=== PATIENT | male | born 1950 | race Caucasian/White ===

== ENCOUNTER 2018-02-26 07:13 | Inpatient (IN) | payer OTHER ==
[2018-02-26] MEDS: LACTATED RINGER'S 1,000 ML IV (08:16)
[2018-02-26] MEDS: morphine 4 MG/ML VIAL IV ×2 (08:16→14:01)
[2018-02-26] MEDS: SPECIAL NON-STANDARD MEDICATION IV (08:16)
[2018-02-26] MEDS: ONDANSETRON 4 MG INJ IV ×2 (08:17→14:01)
[2018-02-26 08:21] LABS: ADD MAN DIFF? NO
[2018-02-26 08:24] LABS: BASOPHILS % 0.3 % (0.0-2.0); HEMATOCRIT 46.3 % (42.0-52.0); HEMOGLOBIN 15.8 g/dl (14.0-18.0); LYMPHOCYTES % 9.2 % (15.0-51.0); MEAN CORPUSCULAR HEMOGLOBIN 31.7 pg (29.0-33.0); MEAN CORPUSCULAR HGB CONC 34.1 g/dl (32.0-37.0); MEAN PLATELET VOLUME 10.4 fl (7.4-10.4); MONOCYTE # 0.6 10^3/ul (0.3-0.9); MONOCYTES % 5.3 % (0.0-11.0); NEUTROPHIL # 9.4 10^3/ul (1.6-7.5); NEUTROPHILS % 84.9 % (39.0-77.0); PLATELET COUNT 229 10^3/UL (140-415); RED BLOOD COUNT 4.98 10^6/ul (4.70-6.10); RED CELL DISTRIBUTION WIDTH 12.5 % (11.5-14.5)
[2018-02-26 08:30] LABS: ADD UMIC YES; UR ASCORBIC ACID NEGATIVE (NEGATIVE); UR BILIRUBIN (Dip) NEGATIVE (NEGATIVE); UR BLOOD (Dip) 1+ mg/dL (NEGATIVE); UR CLARITY CLEAR (CLEAR); UR COLOR YELLOW (YELLOW); UR GLUCOSE (Dip) NEGATIVE (NEGATIVE); UR KETONES (Dip) 2+ mg/dL (NEGATIVE); UR LEUKOCYTE ESTERASE (Dip) NEGATIVE Leu/ul (NEGATIVE); UR MUCUS FEW /HPF (NONE SEEN); UR NITRITE (Dip) NEGATIVE (NEGATIVE); UR RBC 4 /HPF (0-5); UR SPECIFIC GRAVITY (Dip) 1.028 (1.003-1.030); UR TOTAL PROTEIN (Dip) NEGATIVE (NEGATIVE); UR UROBILINOGEN (Dip) NEGATIVE (NEGATIVE); UR WBC 0 /HPF (0-5)
[2018-02-26 08:49] LABS: ALANINE AMINOTRANSFERASE 46 IU/L (13-69); ALBUMIN 4.3 g/dl (3.3-4.9); ALBUMIN/GLOBULIN RATIO 1.38; ALKALINE PHOSPHATASE 81 IU/L (42-121); ANION GAP 18 (8-16); ASPARTATE AMINO TRANSFERASE 45 IU/L (15-46); BILIRUBIN,INDIRECT 2.3 mg/dl (0-1.1); BILIRUBIN,TOTAL 2.3 mg/dl (0.2-1.3); BLOOD UREA NITROGEN 24 mg/dl (7-20); CALCIUM 8.9 mg/dl (8.4-10.2); CARBON DIOXIDE 27 mmol/L (21-31); CHLORIDE 105 mmol/L (97-110); CREATININE 1.03 mg/dl (0.61-1.24); GLUCOSE 133 mg/dl (70-220); LIPASE 79 U/L (23-300); POTASSIUM 4.7 mmol/L (3.5-5.1); SODIUM 145 mmol/L (135-144); TOTAL PROTEIN 7.4 g/dl (6.1-8.1)
[2018-02-26 09:00] LABS: TROPONIN-I < 0.012 ng/ml (0.000-0.120)
[2018-02-26] MEDS: AMPICILLIN/SULB 3 GM/NS (PMX) 100 ML IVPB (10:26)
[2018-02-26] MEDS ORDERED: ACETAMINOPHEN 325 MG TAB PO ×2 (10:30→14:00)
[2018-02-26] MEDS ORDERED: LORAZEPAM 2 MG INJ IV (14:00)
[2018-02-26] MEDS ORDERED: MAGNESIUM HYDROXIDE 30ML CUP PO (14:00)
[2018-02-26] MEDS ORDERED: NACL 0.9% 3 ML SYG IV (14:00)
[2018-02-26] MEDS ORDERED: ONDANSETRON 4 MG INJ IV (14:00)
[2018-02-26] MEDS ORDERED: BISACODYL (EC) 5 MG TAB PO (14:00)
[2018-02-26] MEDS ORDERED: DOCUSATE SODIUM 100 MG CAP PO (14:00)
[2018-02-26] MEDS ORDERED: morphine 2 MG INJ IV (14:00)
[2018-02-26] MEDS: FAMOTIDINE 20 MG INJ IV (15:23)
[2018-02-26] MEDS: PANTOPRAZOLE 40 MG INJ IV (15:24)
[2018-02-26] MEDS: DEXTROSE 5%-0.45% NACL 1,000 ML IV (15:25)
[2018-02-26] MEDS: PIPER-TAZO 3.375 GM IV (PMX) 100 ML IVPB ×2 (18:11→23:45)
[2018-02-26] MEDS: HYDROmorphONE 0.5 MG/0.5 ML SYG IV ×2 (18:24→23:52)
[2018-02-27] MEDS: PIPER-TAZO 3.375 GM IV (PMX) 100 ML IVPB ×3 (05:33→18:11)
[2018-02-27] MEDS: PANTOPRAZOLE 40 MG INJ IV (05:33)
[2018-02-27] MEDS: DEXTROSE 5%-0.45% NACL 1,000 ML IV ×3 (05:34→21:36)
[2018-02-27 06:15] LABS: ADD MAN DIFF? NO
[2018-02-27 06:18] LABS: BASOPHILS % 0.3 % (0.0-2.0); EOSINOPHILS % 0.1 % (0.0-7.0); HEMATOCRIT 43.1 % (42.0-52.0); HEMOGLOBIN 14.6 g/dl (14.0-18.0); LYMPHOCYTES # 1.6 10^3/ul (0.8-2.9); LYMPHOCYTES % 14.4 % (15.0-51.0); MEAN CORPUSCULAR HEMOGLOBIN 31.8 pg (29.0-33.0); MEAN CORPUSCULAR HGB CONC 33.9 g/dl (32.0-37.0); MEAN CORPUSCULAR VOLUME 93.9 fl (82.0-101.0); MEAN PLATELET VOLUME 10.6 fl (7.4-10.4); MONOCYTE # 1.3 10^3/ul (0.3-0.9); MONOCYTES % 11.4 % (0.0-11.0); NEUTROPHIL # 8.2 10^3/ul (1.6-7.5); NEUTROPHILS % 73.4 % (39.0-77.0); PLATELET COUNT 198 10^3/UL (140-415); RED BLOOD COUNT 4.59 10^6/ul (4.70-6.10); RED CELL DISTRIBUTION WIDTH 12.9 % (11.5-14.5)
[2018-02-27 06:18] LABS: WHITE BLOOD COUNT 11.1 10^3/ul (4.8-10.8)
[2018-02-27 06:37] LABS: PROTIME 13.3 Sec (11.9-14.9)
[2018-02-27 06:53] LABS: ALANINE AMINOTRANSFERASE 38 IU/L (13-69); ALBUMIN 3.2 g/dl (3.3-4.9); ALBUMIN/GLOBULIN RATIO 1.14; ALKALINE PHOSPHATASE 60 IU/L (42-121); ANION GAP 11 (8-16); ASPARTATE AMINO TRANSFERASE 28 IU/L (15-46); BILIRUBIN,INDIRECT 3.5 mg/dl (0-1.1); BILIRUBIN,TOTAL 3.5 mg/dl (0.2-1.3); BLOOD UREA NITROGEN 17 mg/dl (7-20); CALCIUM 8.4 mg/dl (8.4-10.2); CARBON DIOXIDE 28 mmol/L (21-31); CHLORIDE 107 mmol/L (97-110); CHOL/HDL RATIO 2.3 RATIO; CHOLESTEROL 109 mg/dl (100-200); CREATININE 1.16 mg/dl (0.61-1.24); GLUCOSE 113 mg/dl (70-220); HDL CHOLESTEROL 46 mg/dl (30-78); LDL CHOLESTEROL,CALCULATED 50 mg/dl; POTASSIUM 4.2 mmol/L (3.5-5.1); SODIUM 142 mmol/L (135-144); TRIGLYCERIDES 64 mg/dl (0-149)
[2018-02-27] MEDS: HYDROmorphONE 0.5 MG/0.5 ML SYG IV ×2 (08:03→22:18)
[2018-02-28] MEDS: PIPER-TAZO 3.375 GM IV (PMX) 100 ML IVPB ×5 (00:10→23:13)
[2018-02-28] MEDS: PANTOPRAZOLE 40 MG INJ IV (05:35)
[2018-02-28] MEDS: HYDROmorphONE 0.5 MG/0.5 ML SYG IV (05:35)
[2018-02-28] MEDS: DEXTROSE 5%-0.45% NACL 1,000 ML IV ×3 (05:45→15:45)
[2018-02-28] MEDS ORDERED: BUPIVACAINE 0.25%/EPI (MDV) 50 ML VIAL INJ (07:00)
[2018-02-28 11:18] LABS: ADD MAN DIFF? NO
[2018-02-28 11:20] LABS: WHITE BLOOD COUNT 8.7 10^3/ul (4.8-10.8)
[2018-02-28 11:20] LABS: BASOPHILS % 0.3 % (0.0-2.0); EOSINOPHILS # 0.1 10^3/ul (0.0-0.5); HEMATOCRIT 41.4 % (42.0-52.0); HEMOGLOBIN 13.9 g/dl (14.0-18.0); LYMPHOCYTES # 2.1 10^3/ul (0.8-2.9); LYMPHOCYTES % 24.3 % (15.0-51.0); MEAN CORPUSCULAR HEMOGLOBIN 31.7 pg (29.0-33.0); MEAN CORPUSCULAR HGB CONC 33.6 g/dl (32.0-37.0); MEAN CORPUSCULAR VOLUME 94.3 fl (82.0-101.0); MEAN PLATELET VOLUME 10.3 fl (7.4-10.4); MONOCYTES % 11.2 % (0.0-11.0); NEUTROPHIL # 5.5 10^3/ul (1.6-7.5); NEUTROPHILS % 62.9 % (39.0-77.0); PLATELET COUNT 170 10^3/UL (140-415); RED BLOOD COUNT 4.39 10^6/ul (4.70-6.10); RED CELL DISTRIBUTION WIDTH 12.5 % (11.5-14.5)
[2018-02-28 11:44] LABS: ALANINE AMINOTRANSFERASE 36 IU/L (13-69); ALBUMIN 3.2 g/dl (3.3-4.9); ALBUMIN/GLOBULIN RATIO 1.14; ALKALINE PHOSPHATASE 56 IU/L (42-121); ANION GAP 10 (8-16); ASPARTATE AMINO TRANSFERASE 34 IU/L (15-46); BILIRUBIN,INDIRECT 3.3 mg/dl (0-1.1); BILIRUBIN,TOTAL 3.3 mg/dl (0.2-1.3); BLOOD UREA NITROGEN 11 mg/dl (7-20); CARBON DIOXIDE 29 mmol/L (21-31); CHLORIDE 107 mmol/L (97-110); CREATININE 0.93 mg/dl (0.61-1.24); GLUCOSE 108 mg/dl (70-220); POTASSIUM 3.9 mmol/L (3.5-5.1); SODIUM 142 mmol/L (135-144)
[2018-02-28 16:42] LABS: HAPTOGLOBIN 156 mg/dL (43-212)
[2018-02-28] MEDS ORDERED: PROPOFOL 20 ML (18:23)
[2018-02-28] MEDS ORDERED: ROCURONIUM 50 MG INJ (18:23)
[2018-02-28] MEDS ORDERED: MIDAZOLAM 1 MG/ML 2 ML INJ (18:24)
[2018-02-28] MEDS ORDERED: ROPIVACAINE 0.5 % 30 ML VIAL (18:24)
[2018-02-28] MEDS ORDERED: PHENYLephrine (100 MCG/ML) 5ML SYG (19:43)
[2018-02-28] MEDS ORDERED: KETOROLAC 30 MG INJ (20:07)
[2018-02-28] MEDS ORDERED: ACETAMINOPHEN 1000MG/100ML IV 100 ML (20:07)
[2018-02-28] MEDS ORDERED: DEXAMETHASONE 4 MG/ML 1 ML INJ (20:07)
[2018-02-28] MEDS ORDERED: ONDANSETRON 4 MG INJ (20:07)
[2018-02-28] MEDS ORDERED: METOCLOPRAMIDE 10 MG INJ (20:07)
[2018-02-28] MEDS ORDERED: SUGAMMADEX SODIUM 200 MG/2 ML VIAL IV (20:07)
[2018-02-28] MEDS ORDERED: FENTAnyl 50 MCG/ML VIAL IV ×3 (20:30)
[2018-02-28] MEDS ORDERED: OXYCODONE/ACETAMINOPHEN (5/325) TAB PO ×2 (20:30)
[2018-02-28] MEDS ORDERED: EPHEDrine SULFATE 50 MG/5 ML SYG IV (20:30)
[2018-02-28] MEDS ORDERED: LABETALOL HCL 20MG INJ IV (20:30)
[2018-02-28] MEDS ORDERED: METOCLOPRAMIDE 10 MG INJ IV (20:30)
[2018-02-28] MEDS ORDERED: MEPERIDINE 25 MG INJ IV (20:30)
[2018-02-28] MEDS ORDERED: ONDANSETRON 4 MG INJ IV ×2 (20:30→21:30)
[2018-02-28] MEDS ORDERED: hydrALAzine 20 MG INJ IV (20:30)
[2018-02-28] MEDS ORDERED: HYDROmorphONE (0.2 MG/ML) 10ML SYG IV ×3 (20:30)
[2018-02-28] MEDS ORDERED: DIPHENHYDRAMINE 50 MG INJ IV (20:30)
[2018-02-28] MEDS ORDERED: MEPERIDINE 100 MG INJ (21:03)
[2018-02-28] MEDS ORDERED: HYDROCODONE/APAP (5/325) TAB PO (21:30)
[2018-02-28] MEDS ORDERED: HYDROmorphONE 0.5 MG/0.5 ML SYG IV (21:30)
[2018-02-28] MEDS ORDERED: ACETAMINOPHEN 325 MG TAB PO (21:30)
[2018-02-28] MEDS ORDERED: NALOXONE (0.4 MG/ML) INJ (22:23)
[2018-02-28] MEDS: D5-NS + KCL 20 MEQ 1,000 ML IV (23:06)
[2018-02-28] MEDS: HYDROCODONE/APAP (5/325) TAB PO (23:14)
[2018-03-01] MEDS ORDERED: PIPER-TAZO 3.375 GM IV (PMX) 100 ML IVPB
[2018-03-01] MEDS: DEXTROSE 5%-0.45% NACL 1,000 ML IV ×2 (01:45→11:45)
[2018-03-01 06:04] LABS: ADD MAN DIFF? NO
[2018-03-01 06:21] LABS: BASOPHILS % 0.1 % (0.0-2.0); HEMATOCRIT 40.2 % (42.0-52.0); HEMOGLOBIN 13.6 g/dl (14.0-18.0); LYMPHOCYTES # 0.8 10^3/ul (0.8-2.9); LYMPHOCYTES % 11.9 % (15.0-51.0); MEAN CORPUSCULAR HEMOGLOBIN 31.8 pg (29.0-33.0); MEAN CORPUSCULAR HGB CONC 33.8 g/dl (32.0-37.0); MEAN CORPUSCULAR VOLUME 93.9 fl (82.0-101.0); MEAN PLATELET VOLUME 11.1 fl (7.4-10.4); MONOCYTE # 0.2 10^3/ul (0.3-0.9); MONOCYTES % 3.2 % (0.0-11.0); NEUTROPHIL # 5.7 10^3/ul (1.6-7.5); NEUTROPHILS % 84.4 % (39.0-77.0); PLATELET COUNT 191 10^3/UL (140-415); RED BLOOD COUNT 4.28 10^6/ul (4.70-6.10); RED CELL DISTRIBUTION WIDTH 12.6 % (11.5-14.5)
[2018-03-01 06:21] LABS: WHITE BLOOD COUNT 6.8 10^3/ul (4.8-10.8)
[2018-03-01] MEDS: PIPER-TAZO 3.375 GM IV (PMX) 100 ML IVPB ×2 (06:22→12:00)
[2018-03-01] MEDS: PANTOPRAZOLE 40 MG INJ IV (06:24)
[2018-03-01] MEDS: ENOXAPARIN 40 MG/0.4 ML SYG SC (06:24)
[2018-03-01] MEDS: HYDROCODONE/APAP (5/325) TAB PO (06:24)
[2018-03-01] MEDS: D5-NS + KCL 20 MEQ 1,000 ML IV (07:20)
== END 2018-03-01 13:00 | disposition home or self-care (01) | DRG 418 ==
LOC: E/R 07:13 → MS2 10:01
PROC: 0FT44ZZ Resection of Gallbladder, Percutaneous Endoscopic Approach (ICD-10-PCS; principal; 2018-02-28 19:00)
DX: K80.00 Calculus of gallbladder with acute cholecystitis without obstruction (principal); E87.0 Hyperosmolality and hypernatremia; F32.9 Major depressive disorder, single episode, unspecified; E86.0 Dehydration; R82.4 Acetonuria; E80.6 Other disorders of bilirubin metabolism; E78.5 Hyperlipidemia, unspecified; E80.4 Gilbert syndrome
CPT/HCPCS: 36415; 74181; 76705; 80053; 80061; 81001; 83010; 83690; 83735; 84484; 85025; 85610; 88304; 93005; 96374; 96375; 96376; 99285-25

== ENCOUNTER 2018-03-06 14:59 | Outpatient (CLI) | payer OTHER | END 2018-03-06 16:09 | disposition home or self-care (01) | LOC: DCC 14:59 | DX: R10.9 Unspecified abdominal pain (principal); F32.9 Major depressive disorder, single episode, unspecified; E78.5 Hyperlipidemia, unspecified | CPT/HCPCS: G0463 ==

== ENCOUNTER 2018-03-14 15:36 | Emergency (ER) | payer OTHER ==
[2018-03-14] MEDS: FAMOTIDINE 20 MG TAB PO (16:38)
[2018-03-14] MEDS: ACETAMINOPHEN 325 MG TAB PO (16:38)
[2018-03-14] MEDS: DIPHENHYDRAMINE 25 MG CAP PO (16:38)
[2018-03-14 16:41] LABS: ADD MAN DIFF? NO
[2018-03-14 17:08] LABS: ALANINE AMINOTRANSFERASE 66 IU/L (13-69); ALBUMIN 3.5 g/dl (3.3-4.9); ALBUMIN/GLOBULIN RATIO 1.12; ALKALINE PHOSPHATASE 86 IU/L (42-121); ANION GAP 12 (8-16); ASPARTATE AMINO TRANSFERASE 41 IU/L (15-46); BILIRUBIN,INDIRECT 1.3 mg/dl (0-1.1); BILIRUBIN,TOTAL 1.3 mg/dl (0.2-1.3); BLOOD UREA NITROGEN 15 mg/dl (7-20); CALCIUM 8.9 mg/dl (8.4-10.2); CARBON DIOXIDE 31 mmol/L (21-31); CHLORIDE 110 mmol/L (97-110); CREATININE 0.97 mg/dl (0.61-1.24); GLUCOSE 89 mg/dl (70-220); LIPASE 61 U/L (23-300); POTASSIUM 4.6 mmol/L (3.5-5.1); SODIUM 148 mmol/L (135-144); TOTAL PROTEIN 6.6 g/dl (6.1-8.1)
[2018-03-14 17:17] LABS: ADD UMIC NO; UR ASCORBIC ACID NEGATIVE (NEGATIVE); UR BILIRUBIN (Dip) NEGATIVE (NEGATIVE); UR BLOOD (Dip) NEGATIVE (NEGATIVE); UR CLARITY CLEAR (CLEAR); UR COLOR YELLOW (YELLOW); UR GLUCOSE (Dip) NEGATIVE (NEGATIVE); UR KETONES (Dip) NEGATIVE (NEGATIVE); UR LEUKOCYTE ESTERASE (Dip) NEGATIVE Leu/ul (NEGATIVE); UR NITRITE (Dip) NEGATIVE (NEGATIVE); UR TOTAL PROTEIN (Dip) NEGATIVE (NEGATIVE); UR UROBILINOGEN (Dip) NEGATIVE (NEGATIVE)
[2018-03-14 17:21] LABS: TROPONIN-I < 0.010 ng/ml (0.000-0.120)
[2018-03-14 17:34] LABS: WHITE BLOOD COUNT 7.2 10^3/ul (4.8-10.8)
[2018-03-14 17:34] LABS: BASOPHILS % 0.4 % (0.0-2.0); EOSINOPHILS # 0.4 10^3/ul (0.0-0.5); HEMATOCRIT 40.1 % (42.0-52.0); HEMOGLOBIN 13.9 g/dl (14.0-18.0); LYMPHOCYTES # 1.6 10^3/ul (0.8-2.9); MEAN CORPUSCULAR HEMOGLOBIN 33.3 pg (29.0-33.0); MEAN CORPUSCULAR HGB CONC 34.7 g/dl (32.0-37.0); MEAN CORPUSCULAR VOLUME 96.2 fl (82.0-101.0); MEAN PLATELET VOLUME 10.5 fl (7.4-10.4); MONOCYTE # 0.7 10^3/ul (0.3-0.9); MONOCYTES % 9.4 % (0.0-11.0); NEUTROPHIL # 4.6 10^3/ul (1.6-7.5); NEUTROPHILS % 62.8 % (39.0-77.0); PLATELET COUNT 337 10^3/UL (140-415); RED BLOOD COUNT 4.17 10^6/ul (4.70-6.10); RED CELL DISTRIBUTION WIDTH 12.4 % (11.5-14.5)
== END 2018-03-14 18:05 | disposition home or self-care (01) ==
LOC: FTE 15:36
DX: R21 Rash and other nonspecific skin eruption (principal); R10.13 Epigastric pain
CPT/HCPCS: 36415; 71045; 76705; 80053; 81003; 83690; 84484; 85025; 99285-25

== ENCOUNTER 2018-03-20 14:00 | Outpatient (CLI) | payer OTHER | END 2018-03-20 16:09 | disposition home or self-care (01) | LOC: DCC 14:00 | DX: R21 Rash and other nonspecific skin eruption (principal); F32.9 Major depressive disorder, single episode, unspecified; E78.5 Hyperlipidemia, unspecified | CPT/HCPCS: G0463 ==